=== PATIENT | male | born 1955 ===

== ENCOUNTER 2017-02-07 08:09 | Day surgery (SDC) | payer OTHER ==
[2017-02-07 09:11] VITALS: BMI 25.8
[2017-02-07] MEDS ORDERED: Lactated Ringer's 500 ML IV ONE (09:13)
[2017-02-07 09:29] VITALS: TEMP 97
[2017-02-07] MEDS ORDERED: Lidocaine 2% MPF (5 ml) Inj ONE (10:40)
[2017-02-07] MEDS ORDERED: Propofol 10 mg/ml Inj (20 ML) ONE (10:40)
[2017-02-07 11:34] VITALS: BP 110/70; PULSE 60; RESP 12; O2SAT 98
== END 2017-02-07 12:02 | disposition home or self-care (01) ==
LOC: H.ENDO 08:09
PROVIDERS: ATTEND Internal Medicine Gastroenterology
DX: Z12.11 Encounter for screening for malignant neoplasm of colon (principal); K64.8 Other hemorrhoids
CPT/HCPCS: 45378; J2704; J7120